=== PATIENT | female | born 1980 | race Caucasian/White ===

== ENCOUNTER 2016-07-18 15:54 | Emergency (ER) | payer OTHER ==
[~2016-07-18] VITALS: Ht 160 cm; Wt 109.5 kg
[~2016-07-18 15:54] MED LIST: AMOXICILLIN500 MG PO; AMOXICILLIN875 MG PO; BACTRIM,SEPT1 TABLET PO; CEFPODOXIME PR200 MG PO; CEPHALEXIN500 MG PO; CLEOCIN300 MG PO; CLINDAMYCIN HC300 MG PO; ENDOCET 5-3251 EACH PO; FLOMAX0.4 MG PO; IMITREX100 MG PO; INDOCIN25 MG PO; KEFLEX500 MG PO; LIDOCAINE20 MG/1 M5 PO; MOTRIN600 MG PO; MOTRIN800 MG PO; NAPROSYN500 MG PO; NORCO 5/3251 TABLET PO; OXAYDO5 MG PO; PEN-VEE K,VEET500 MG PO; PERCOCET 5/31 TABLET PO; PHENERGAN-CODE120 ML PO; PHENTERMINE HCL15 MG PO; PHENTERMINE HCL30 MG PO; TYLENOL EXTRA500 MG PO; ULTRACET1 TABLET PO; ULTRAM50 MG PO; VALIUM5 MG PO; XANAX1 MG PO; ZOFRAN4 MG PO; ZOFRAN8 MG PO
[2016-07-18 16:39] LABS: HEMATOCRIT 42.6 % (36.0-46.0); MCH 32.5 PG (29.0-34.0); MCV 92.8 FL (83-99); MEAN PLAT.VOLUME 9.8 uM^3 (9.5-12.4); PLATELET COUNT 306 K/uL (156-360); RBC DIS.WIDTH-CV 12.5 % (11.8-14.6); RBC DIS.WIDTH-SD 40.9 % (39-53); RED BLOOD COUNT 4.59 M/uL (3.80-5.20); WHITE BLOOD COUNT 9.8 K/uL (4.1-10.2)
[2016-07-18 16:53] LABS: CHLORIDE 107 mEq/L (99-109); POTASSIUM 4.4 mEq/L (3.7-5.4); SODIUM 139 mEq/L (136-147)
[2016-07-18 16:55] LABS: GLUCOSE 100 mg/dL (70-99)
[2016-07-18 16:56] LABS: ANION GAP 8 MEQ/L (2-14)
[2016-07-18 16:59] LABS: GFR ESTIMATE (CALCULATED) > 59 mL/min/
[2016-07-18 17:00] LABS: UREA NITROGEN (BUN) 14 mg/dL (9-23)
[2016-07-18 17:53] LABS: QUANTITATIVE HCG < 4.0 MIU/ML
[2016-07-18 17:54] LABS: ADD MIUA? YES; BILIRUBIN NEGATIVE; BLOOD MODERATE; COLOR YELLOW ((YELLOW)); GLUCOSE (STRIP) NEGATIVE; KETONES NEGATIVE; LEUKOCYTES SMALL; NITRITE NEGATIVE; PROTEIN (STRIP) NEGATIVE; SPECIFIC GRAVITY 1.022 (1.000-1.030); UROBILINOGEN 0.2 MG/DL (0.2-1.0)
[2016-07-18] MEDS ORDERED: KEFLEX500 MG PO (18:50)
[2016-07-18] MEDS ORDERED: ULTRAM50 MG PO (18:50)
[2016-07-18] MEDS ORDERED: ZOFRAN ODT4 MG PO (18:50)
[2016-07-18 19:00] VITALS: BP 117/77
[2016-07-18 19:09] LABS: BACTERIA 1+; CASTS NONE SEEN /LPF; CRYSTALS NONE SEEN; EPITHELIAL CELLS 2+; MUCUS NONE SEEN; PATHOLOGICAL CAST NONE SEEN; SMALL ROUND CELL NONE SEEN; UCUL ADDED? NO; YEAST-LIKE CELL NONE SEEN
== END 2016-07-18 19:01 | disposition left against medical advice (07) ==
LOC: RME 15:54 → EME 15:54 → RME 19:01
DX: M54.5 Low back pain (principal); Z53.29 Procedure and treatment not carried out because of patient's decision for other reasons; R10.31 Right lower quadrant pain; R31.9 Hematuria, unspecified; E03.9 Hypothyroidism, unspecified; F17.200 Nicotine dependence, unspecified, uncomplicated; Z87.442 Personal history of urinary calculi; Z88.4 Allergy status to anesthetic agent; Z88.6 Allergy status to analgesic agent
CPT/HCPCS: 74000; 80048; 81003; 84702; 85027; 99281; 99284; J1885; J3010

== ENCOUNTER 2016-09-27 17:23 | Emergency (ER) | payer OTHER ==
[~2016-09-27] VITALS: Ht 160 cm; Wt 112.4 kg
[~2016-09-27 17:23] MED LIST changes: +ZOFRAN ODT4 MG PO
[2016-09-27] MEDS ORDERED: TRAMADOL HCL50 MG PO (21:08)
[2016-09-27] MEDS ORDERED: ZOFRAN4 MG PO (21:08)
[2016-09-27 21:38] VITALS: BP 127/93
== END 2016-09-27 21:39 | disposition home or self-care (01) ==
LOC: EME 17:23
PROC: 2W39X1Z Immobilization of Left Upper Extremity using Splint (ICD-10-PCS; principal; 2016-09-27)
DX: S62.015A Nondisplaced fracture of distal pole of navicular [scaphoid] bone of left wrist, initial encounter for closed fracture (principal); S13.4XXA Sprain of ligaments of cervical spine, initial encounter; V49.40XA Driver injured in collision with unspecified motor vehicles in traffic accident, initial encounter; Z88.5 Allergy status to narcotic agent; F17.200 Nicotine dependence, unspecified, uncomplicated
CPT/HCPCS: 72040; 73030; 73110; 99281; 99284

== ENCOUNTER 2016-11-10 16:16 | Emergency (ER) | payer OTHER ==
[~2016-11-10] VITALS: Ht 160 cm; Wt 112.6 kg
[~2016-11-10 16:16] MED LIST changes: +TRAMADOL HCL50 MG PO
[2016-11-10] MEDS ORDERED: MEDROL DOSEPAK4 MG PO (18:02)
[2016-11-10] MEDS ORDERED: NORCO 5/3251 TABLET PO (18:02)
[2016-11-10 18:20] VITALS: BP 150/85
== END 2016-11-10 18:21 | disposition home or self-care (01) ==
LOC: EME 16:16
DX: S39.012A Strain of muscle, fascia and tendon of lower back, initial encounter (principal); X50.0XXA Overexertion from strenuous movement or load, initial encounter; Y93.E2 Activity, laundry
CPT/HCPCS: 99281; 99283; J1885

== ENCOUNTER 2016-12-10 14:43 | Emergency (ER) | payer OTHER ==
[~2016-12-10] VITALS: Ht 160 cm; Wt 108.8 kg
[~2016-12-10 14:43] MED LIST changes: +MEDROL DOSEPAK4 MG PO
[2016-12-10] MEDS ORDERED: NORCO 5/3251 TABLET PO (17:00)
[2016-12-10 17:16] VITALS: BP 141/88
== END 2016-12-10 17:17 | disposition home or self-care (01) ==
LOC: EME 14:43
DX: L02.416 Cutaneous abscess of left lower limb (principal); F17.200 Nicotine dependence, unspecified, uncomplicated
CPT/HCPCS: 99281; 99284

== ENCOUNTER 2017-03-19 15:45 | Emergency (ER) | payer OTHER ==
[~2017-03-19] VITALS: Ht 160 cm; Wt 107.0 kg
[2017-03-19] MEDS ORDERED: LIDODERM 5% P1 PATCH TD (17:23)
[2017-03-19] MEDS ORDERED: FLEXERIL10 MG PO (17:23)
[2017-03-19] MEDS ORDERED: MOTRIN800 MG PO (17:25)
[2017-03-19 17:57] VITALS: BP 121/86
== END 2017-03-19 17:58 | disposition home or self-care (01) ==
LOC: EME 15:45
DX: M54.12 Radiculopathy, cervical region (principal); M62.830 Muscle spasm of back; M25.512 Pain in left shoulder; M79.602 Pain in left arm; F17.200 Nicotine dependence, unspecified, uncomplicated
CPT/HCPCS: 72040; 93005; 99281; 99284; J1885